=== PATIENT | male | born 1950 | race Caucasian/White ===

== ENCOUNTER 2018-08-07 08:57 | Day surgery (SDC) | payer OTHER ==
[2018-08-07] MEDS ORDERED: fentaNYL 100 MCG/2 ML INJ IVP PRN (09:08)
[2018-08-07] MEDS ORDERED: MIDAZOLAM 2 MG/2 ML VIAL IVP PRN (09:08)
[2018-08-07] MEDS ORDERED: FLUMAZENIL 0.5 MG/5 ML MDV IVP PRN (09:08)
[2018-08-07] MEDS ORDERED: NALOXONE HCL 0.4 MG/ML INJ IVP PRN (09:08)
[2018-08-07] MEDS ORDERED: MEPERIDINE 25 MG/ML SYR IVP PRN (09:08)
[2018-08-07] MEDS ORDERED: NALOXONE HCL 0.4 MG/ML INJ ONE (09:15)
[2018-08-07] MEDS ORDERED: MIDAZOLAM 2 MG/2 ML VIAL ONE ×2 (09:15)
[2018-08-07] MEDS ORDERED: NS 1,000 ML IV SCH (09:15)
[2018-08-07] MEDS ORDERED: FLUMAZENIL 0.5 MG/5 ML MDV IVP ONE (09:15)
[2018-08-07] MEDS ORDERED: fentaNYL 100 MCG/2 ML INJ ONE (09:16)
[2018-08-07 09:42] LABS: PLATELET COUNT 104 10^3/uL (150-400)
[2018-08-07 09:51] LABS: INR 0.99 (0.83-1.16); PROTIME(PATIENT) 13.3 SEC (12.0-15.0)
[2018-08-07] MEDS ORDERED: ONDANSETRON 4 MG/2 ML VIAL IVP PRN (12:51)
[2018-08-07] MEDS ORDERED: ACETAMINOPHEN 325 MG TAB PO PRN (12:51)
--- NOTE | 2018-08-07 12:53 | PDPROPOC ---
Sedation Plan of Care Sedation Plan of Care: vital signs stable, mental status noted, patient educated of risks, benefits, alternatives, patient can tolerate sedation ASA Classification: ASA 2 Planned drugs: fentanyl, midazolam Mallampati Score: Class 2 Mallampati Reference Image: Patient passed 3-3-2 rule?: Yes
--- NOTE | 2018-08-07 12:53 | PDRADPRE ---
Radiology History & Physical Indication for procedure: cancer (Bone marrow biopsy workup ) Home medications: Gabapentin 300 mg PO BID 08/07/18 [Last Taken 08/06/18] Lipitor 40 mg PO DAILY 08/07/18 [Last Taken 08/06/18] Meloxicam 15 mg PO DAILY 08/07/18 [Last Taken 08/06/18] Metoprolol Succinate 50 mg PO DAILY 08/07/18 [Last Taken 08/06/18] Allergies/Adverse Reactions: No Known Allergies Allergy (Unverified 08/07/18 07:46) Mental status: A&Ox3 Heart exam: regular rate and rhythm Lungs exam: clear to auscultation Mallampati Score: Class 2
--- NOTE | 2018-08-07 12:54 | PDRADPN ---
Radiology Procedure Note Date of Procedure: 08/07/18 Radiologist: Amos Olsen Anesthesia: IV Sedation Pre-op Diagnosis: pancytopenia Post-op Diagnosis: pancytopenia Indication: pancytopenia Procedure: BMB Finding(s): BMB core and aspirate confirmed by cytology. Inf/Abcess present in the surg proc area at time of surgery?: No
[2018-08-07] MEDS ORDERED: LIDOCAINE 1% 300 MG/30 ML SDV ONE (13:02)
[2018-08-07] MEDS ORDERED: OXYCODONE/APAP 5/325 TAB ONE (13:39)
[2018-08-07] MEDS ORDERED: OXYCODONE/APAP 5/325 TAB PO PRN (13:40)
[2018-08-07 14:59] VITALS: BP 116/70
== END 2018-08-07 14:48 | disposition home or self-care (01) ==
LOC: FIMAGING 08:57
PROVIDERS: ATTEND Internal Medicine Hematology & Oncology
DX: D61.818 Other pancytopenia (principal); I10 Essential (primary) hypertension; Z87.891 Personal history of nicotine dependence; Z86.19 Personal history of other infectious and parasitic diseases
CPT/HCPCS: J2250; J2310; J3010